=== PATIENT | female | born 2005 | race Caucasian/White ===

== ENCOUNTER 2024-02-15 05:11 | Emergency (ER) | payer SELFPAY ==
[~2024-02-15] VITALS: Ht 170.2 cm; Wt 169.3 kg
[2024-02-15 05:12] VITALS: BP 140/79; TEMP 98.1; O2SAT 99
== END 2024-02-15 06:15 | disposition left against medical advice (07) ==
LOC: M ED 05:11
DX: Z53.21 Procedure and treatment not carried out due to patient leaving prior to being seen by health care provider (principal)

== ENCOUNTER 2025-03-23 16:01 | Inpatient (IN) | payer OTHER, SELFPAY ==
[~2025-03-23] VITALS: Ht 170.2 cm; Wt 174.8 kg
[2025-03-23 17:26] LABS: PLATELET COUNT, AUTOMATED 326 10^3/uL (150-450)
[2025-03-23 17:28] LABS: ETHYL ALCOHOL (ETHANOL) < 0.003 % (0.000-0.010)
[2025-03-23 17:29] LABS: HCG, SERUM QUALITATIVE NEGATIVE (NEGATIVE)
[2025-03-23 17:30] LABS: ALT/SGPT 48 U/L (7.0-40); AST/SGOT 32 U/L (<34); CALCIUM LEVEL 9.6 MG/DL (8.5-10.1); CARBON DIOXIDE LEVEL 26 MMOL/L (20-31); CHLORIDE LEVEL 106 MMOL/L (98-107); CREATININE FOR GFR 1.38 MG/DL (0.55-1.30); GLOMERULAR FILTRATION RATE 55.9 (>60); POTASSIUM SERUM 4.3 MMOL/L (3.5-5.1); SALICYLATE LEVEL < 3.0 MG/DL (<30); SODIUM LEVEL 143 MMOL/L (136-145)
[2025-03-23 17:52] LABS: AMPHETAMINES LEVEL URINE NEGATIVE (NEGATIVE); BARBITURATES URINE NEGATIVE (NEGATIVE); BENZODIAZEPINES URINE NEGATIVE (NEGATIVE); CANNABINOIDS URINE NEGATIVE (NEGATIVE); COCAINE METABOLITE URINE NEGATIVE (NEGATIVE); METHADONE URINE NEGATIVE (NEGATIVE); OPIATES URINE NEGATIVE (NEGATIVE); PHENCYCLIDINE URINE NEGATIVE (NEGATIVE)
[2025-03-23] MEDS ORDERED: HOME MED LIST COMPLETE! XX SCH (18:55)
[2025-03-23] MEDS ORDERED: MOM 30 ML SUSPENSION UDC PO PRN (19:25)
[2025-03-23] MEDS ORDERED: MAALOX 30 ML SUSP *UDC PO PRN (19:25)
[2025-03-23] MEDS ORDERED: IBUPROFEN 400 MG TAB PO PRN (19:25)
[2025-03-23] MEDS: traZODone 50 MG TAB PO PRN (23:26)
[2025-03-23 23:49] VITALS: BP 160/90; TEMP 97.5; O2SAT 98
[2025-03-24 06:55] VITALS: BP 134/68; TEMP 98.3; O2SAT 100
[2025-03-24] MEDS: ACETAMINOPHEN 325 MG TAB PO PRN (13:10)
== END 2025-03-24 15:03 | disposition home or self-care (01) | DRG 754 ==
LOC: M ED 16:01 → M ED INP 19:24 → M PSY 22:57
PROVIDERS: ADMIT Psychiatry & Neurology Neurology; ATTEND Psychiatry & Neurology Neurology
DX: F43.21 Adjustment disorder with depressed mood (principal); Z68.44 Body mass index [BMI] 60.0-69.9, adult; F41.9 Anxiety disorder, unspecified; E66.01 Morbid (severe) obesity due to excess calories